=== PATIENT | female | born 1945 | race Two or more races ===

== ENCOUNTER 2016-08-30 17:56 | Emergency (ER) | payer OTHER ==
[~2016-08-30] VITALS: Ht 165.1 cm; Wt 65.8 kg
[2016-08-30] MEDS ORDERED: D5W 55 ML IV ONE (19:41)
[2016-08-30] MEDS ORDERED: levETIRAcetam 500mg vial IV ONE (19:41)
[2016-08-30] MEDS ORDERED: levETIRAcetam 500 MG in D5W 110 ML IVPB ONE (19:45)
[2016-08-30 20:22] VITALS: BP 140/72
[2016-08-30] MEDS ORDERED: TARKA ER 2-1801 EACH PO (20:36)
[2016-08-30 21:41] VITALS: BP 133/69
[2016-08-30 21:42] LABS: MEAN CORPUSCULAR HEMOGLOBIN 31.7 PG (27.0-31.0); MEAN CORPUSCULAR HGB CONC 35.9 G/DL (32.0-36.0); MEAN CORPUSCULAR VOLUME 88 FL (80-99); MEAN PLATELET VOLUME 7.2 FL (6.5-10.1); PLATELET COUNT 153 K/UL (150-450); RED BLOOD COUNT 4.34 M/UL (4.20-5.40); RED CELL DISTRIBUTION WIDTH 12.1 % (11.6-14.8); WHITE BLOOD COUNT 13.6 K/UL (4.8-10.8)
[2016-08-30 21:43] LABS: APPEARANCE,URINE CLEAR; KETONES,URINE NEGATIVE (NEGATIVE); LEUKOCYTE ESTERASE ,URINE NEGATIVE (NEGATIVE); NITRITE,URINE NEGATIVE (NEGATIVE); PH,URINE 5 (4.5-8.0); PROTEIN,URINE 2+ (NEGATIVE); UROBILINOGEN,URINE NORMAL MG/DL (0.0-1.0)
[2016-08-30 21:45] LABS: BASOPHILS % (AUTO) 0.4 % (0.0-2.0); EOSINOPHILS % (AUTO) 0.2 % (0.0-3.0); LYMPHOCYTES % (AUTO) 5.7 % (20.0-45.0); MONOCYTES % (AUTO) 4.3 % (1.0-10.0); NEUTROPHILS % (AUTO) 89.4 % (45.0-75.0)
[2016-08-30 21:52] LABS: ALANINE AMINOTRANSFERASE 10 U/L (3-33); ALBUMIN/GLOBULIN RATIO 1.3 (1.0-2.7); ALCOHOL < 10 mg/dL; ANION GAP 15 (5-15); ASPARTATE AMINO TRANSFERASE 19 U/L (5-40); CALCIUM 10.2 mg/dL (8.6-10.2); CARBON DIOXIDE 24 mEQ/L (20-30); CHLORIDE 94 mEQ/L (98-107); CREATININE 1.4 mg/dL (0.5-0.9); GLOMERULAR FILTRATION RATE 37.2 mL/min (>60); HEMOLYSIS 16; POTASSIUM 4.7 mEQ/L (3.4-4.9); SODIUM 133 mEQ/L (135-145); TOTAL PROTEIN 6.4 g/dL (6.6-8.7)
[2016-08-30 21:55] LABS: TROPONIN I < 0.30 ng/mL (<=0.30)
[2016-08-30 21:58] LABS: RBC,URINE 0-2 /HPF (0 - 2); WBC,URINE 0-2 /HPF (0 - 2)
[2016-08-30 21:59] LABS: AMORPHOUS SEDIMENT,UR FEW /LPF; BACTERIA,URINE FEW /HPF
[2016-08-30 22:02] LABS: CKMB 4.4 ng/mL (< 3.8)
--- NOTE | 2016-08-30 22:17 | Emergency Room Report ---
History of Present Illness General Chief Complaint: Seizure Source: Patient Present Illness Allergies: Coded Allergies: No Known Allergies (Unverified , 08/30/16) Nursing Documentation-PMH Hx Cardiac Problems: No Hx Hypertension: Yes Hx Pacemaker: No Hx Asthma: No Hx COPD: No Hx Diabetes: No Hx Cancer: Yes - breast Hx Dialysis: No Hx Neurological Problems: No Hx Cerebrovascular Accident: No Hx Seizures: No Physical Exam Vital Signs Date Time Temp Pulse Resp B/P Pulse Ox O2 Delivery O2 Flow Rate FiO2 08/30/16 17:59 97.0 78 16 145/88 97 Room Air Medical Decision Making Diagnostic Impression: Primary Impression: Epileptic seizure, generalized Additional Impression: Brain tumors Labs Test 08/30/16 21:00 White Blood Count 13.6 K/UL (4.8-10.8) Red Blood Count 4.34 M/UL (4.20-5.40) Hemoglobin 13.8 G/DL (12.0-16.0) Hematocrit 38.4 % (37.0-47.0) Mean Corpuscular Volume 88 FL (80-99) Mean Corpuscular Hemoglobin 31.7 PG (27.0-31.0) Mean Corpuscular Hemoglobin Concent 35.9 G/DL (32.0-36.0) Red Cell Distribution Width 12.1 % (11.6-14.8) Platelet Count 153 K/UL (150-450) Mean Platelet Volume 7.2 FL (6.5-10.1) Neutrophils (%) (Auto) 89.4 % (45.0-75.0) Lymphocytes (%) (Auto) 5.7 % (20.0-45.0) Monocytes (%) (Auto) 4.3 % (1.0-10.0) Eosinophils (%) (Auto) 0.2 % (0.0-3.0) Basophils (%) (Auto) 0.4 % (0.0-2.0) Urine Color Pale yellow Urine Appearance Clear Urine pH 5 (4.5-8.0) Urine Specific Plato 1.020 (1.005-1.035) Urine Protein 2+ (NEGATIVE) Urine Glucose (UA) Negative (NEGATIVE) Urine Ketones Negative (NEGATIVE) Urine Occult Blood 2+ (NEGATIVE) Urine Nitrite Negative (NEGATIVE) Urine Bilirubin Negative (NEGATIVE) Urine Urobilinogen Normal MG/DL (0.0-1.0) Urine Leukocyte Esterase Negative (NEGATIVE) Urine RBC 0-2 /HPF (0 - 2) Urine WBC 0-2 /HPF (0 - 2) Urine Squamous Epithelial Cells None /LPF (NONE/OCC) Urine Amorphous Sediment Few /LPF (NONE) Urine Bacteria Few /HPF (NONE) Sodium Level 133 mEQ/L (135-145) Potassium Level 4.7 mEQ/L (3.4-4.9) Chloride Level 94 mEQ/L (98-107) Carbon Dioxide Level 24 mEQ/L (20-30) Anion Gap 15 (5-15) Blood Urea Nitrogen 21 mg/dL (7-23) Creatinine 1.4 mg/dL (0.5-0.9) Estimat Glomerular Filtration Rate 37.2 mL/min (>60) Glucose Level 134 mg/dL (74-106) Calcium Level 10.2 mg/dL (8.6-10.2) Total Bilirubin 0.2 mg/dL (0.0-1.2) Aspartate Amino Transf (AST/SGOT) 19 U/L (5-40) Alanine Aminotransferase (ALT/SGPT) 10 U/L (3-33) Alkaline Phosphatase 63 U/L (35-104) Total Creatine Kinase 171 U/L (26-140) Creatine Kinase MB 4.4 ng/mL (< 3.8) Creatine Kinase MB Relative Index 2.5 Troponin I < 0.30 ng/mL (<=0.30) Total Protein 6.4 g/dL (6.6-8.7) Albumin 3.7 g/dL (3.5-5.2) Globulin 2.7 g/dL Albumin/Globulin Ratio 1.3 (1.0-2.7) Serum Alcohol < 10 mg/dL EKG Diagnostic Results Rate: normal Rhythm: other ST Segments: no acute changes Other Impression SR w/ 1st degree AV Block Rhythm Strip Diag. Results EP Interpretation: yes Rate: 90's Rhythm: NSR, no PVC's, no ectopy Chest X-Ray Diagnostic Results EP Interpretation: Yes Findings: no consolidation, no effusion, no pneumothorax, no acute cardiopulmonary disease Number of Views: 1 CT/MRI/US Diagnostic Results CT/MRI/US Diagnostic Results : Imaging Test Ordered: CT head Impression 2 cm mass medial right frontal lobe with surrounding white matter edema. Additional so this a white matter edema lateral left parietal lobe associated mass less well seen but suspected at 1.5 cm. No midline shift or hemorrhage. Mild mass effect. See official report. Last Vital Signs Date Time Temp Pulse Resp B/P Pulse Ox O2 Delivery O2 Flow Rate FiO2 08/30/16 21:52 94 20 Room Air 08/30/16 21:41 133/69 95 08/30/16 17:59 97.0 Disposition: XFER SHT-TRM HOSP Condition: Serious Referrals: NOT CHOSEN MAN/,REFERRING (PCP) SULAIMAN LONG D.O. August 30, 2016 22:17
[2016-08-30 23:01] VITALS: BP 134/72
[2016-08-30 23:30] VITALS: BP 134/72
--- NOTE | 2016-08-31 11:30 | Diagnostic Imaging Report ---
Indication: Chest Pain Comparison: None A single view chest radiograph was obtained. Findings: Cardiomediastinal appearance is within normal limits for age. Pulmonary vascularity is appropriate. The diaphragmatic contour is smooth and costophrenic angles are sharp. No pleural effusions are identified. The bones are osteopenic. There are surgical clips in the right axilla and upper abdomen. Impression: No acute findings
--- NOTE | 2016-08-31 12:24 | Diagnostic Imaging Report ---
Indication: Seizure Technique: Contiguous 5 mm thick transaxial imaging of the head obtained in a Siemens Sensation [address] scanner. Soft tissue and bone windows generated. Total Dose length Product (DLP): [address] Dose Index Volume (CTDIvol): 70.38 mGy Comparison: none Findings: There is a suspicion of a 2 cm low-density mass within the medial right frontal lobe adjacent to the interhemispheric fissure. There is associated low density, white matter vasogenic edema within the right frontal lobe. Vasogenic edema also suspected within the left parietal lobe. Findings are suspicious for metastatic neoplasm or cerebritis/infection. Further evaluation with gadolinium-enhanced MRI is recommended. Ventricles are normal. There is no acute hemorrhage or herniation identified. There is no hydrocephalus. Basal cisterns are normal. Osseous structures are unremarkable in appearance. Impression: 2 areas of vasogenic edema likely associated with underlying mass lesions. Evaluation with contrast enhanced MRI is recommended. Dr. De Oliveira has communicated the preliminary results to the Emergency Department. There are no significant discrepancies. The CT scanner at [facility] is accredited by the [employer] and the scans are performed using protocols designed to limit radiation exposure to as low as reasonably achievable to attain images of sufficient resolution adequate for diagnostic evaluation.
--- NOTE | 2016-08-31 17:10 | Cardiology Report ---
APPROVED REPORT EKG Measurement Heart [id number] SD [id number] Sinus rhythm with 1st degree AV block Otherwise normal ECG
== END 2016-08-30 23:40 | disposition short-term general hospital (02) ==
LOC: EDBD 17:56 → EMR 18:35
DX: G40.409 Other generalized epilepsy and epileptic syndromes, not intractable, without status epilepticus (principal); D49.6 Neoplasm of unspecified behavior of brain; I10 Essential (primary) hypertension; Z85.3 Personal history of malignant neoplasm of breast; I44.0 Atrioventricular block, first degree
CPT/HCPCS: 36415; 70450; 71010; 80053; 81003; 82550; 82553; 82962; 84484; 85025; 93005; 96374; 99285; G0480; J1953; 80329